=== PATIENT | male | born 1940 | race Hispanic/Latino ===

== ENCOUNTER 2020-07-04 09:16 | Outpatient (CLI) | payer OTHER ==
[2020-07-04 09:41] LABS: #Basophils 0.1 thou/uL (0.0-0.2); #Eosinphils 0.3 thou/uL (0.0-0.7); #Lymphocytes 1.6 thou/uL (1.20-3.40); #Monocytes 0.5 thou/uL (0.11-0.59); #Neutrophils 3.8 thou/uL (1.40-6.50); %Eosinophils 5.5 % (0.0-10.0); %Lymphocytes 24.8 % (21.0-51.0); %Monocytes 8.4 % (0.0-10.0); %Neutrophils 59.3 % (42.0-75.0); Hemoglobin 11.8 g/dL (14.0-18.0); Mean Corpuscular Hemoglobin 27.7 pg (27.0-31.0); Mean Corpuscular Volume 86.6 fL (78.0-98.0); Mean Platelet Volume 6.3 fL (7.4-10.4); Platelet Count 316 thou/uL (130-400); RBC Distribution Width 12.2 % (11.5-14.5); Red Blood Cell (RBC) Count 4.27 mill/uL (4.70-6.10); White Blood Cell (WBC) Count 6.3 thou/uL (4.8-10.8)
[2020-07-04 09:59] LABS: ALT (SGPT) 12 U/L (8-55); AST (SGOT) 17 U/L (5-34); Albumin 4.2 g/dL (3.4-4.8); Alkaline Phosphatase 86 U/L (40-110); Anion Gap 12 mmol/L (10-20); BUN (Urea Nitrogen) 18 mg/dL (8.4-25.7); Bilirubin, Total 0.3 mg/dL (0.2-1.2); Calc. Creatinine Clearance 0 mL/min (70-130); Calcium 9.3 mg/dL (7.8-10.44); Carbon Dioxide 29 mmol/L (23-31); Cardiac Risk 2.8 (Less than 4.5); Chloride 99 mmol/L (98-107); Cholesterol 212 mg/dl (< 200 Desired); Globulin 3.1 g/dL (2.4-3.5); Glucose 162 mg/dL (83-110); HDL Cholesterol 77 mg/dL (>60 Neg Risk); LDL Cholesterol, Calculated 122 mg/dL; Potassium 3.9 mmol/L (3.5-5.1); Protein, Total 7.3 g/dL (5.8-8.1); Sodium 136 mmol/L (136-145); Triglycerides 64 mg/dL (Less than 150)
[2020-07-04 10:15] LABS: Thyroid Stimulating Hormone 2.6899 uIU/mL (0.35-4.94)
[2020-07-04 15:04] LABS: Hemoglobin A1c 6.7 % (4.0-6.0)
[2020-07-04 15:22] LABS: Creatinine, Urine 254.87 mg/dL (63-166)
[2020-07-04 15:25] LABS: Microalbumin Urine 53.8 mg/dL (0.5-50.0); Microalbumin/Creat Ratio 211.1 mg/g (Less than 30)
== END 2020-07-04 09:17 | disposition home or self-care (01) ==
LOC: MADLAB 09:16
PROVIDERS: ATTEND Family Medicine
DX: E78.2 Mixed hyperlipidemia (principal); E11.9 Type 2 diabetes mellitus without complications; I10 Essential (primary) hypertension; Z79.899 Other long term (current) drug therapy
CPT/HCPCS: 36415; 80053; 80061; 82043; 83036; 84439; 84443; 85025

== ENCOUNTER 2023-10-25 19:15 | Inpatient (IN) | payer MEDICARE, OTHER ==
[2023-10-25 19:29] VITALS: BMI 26.3
[2023-10-25] MEDS ORDERED: Albuterol 200 PUFF (6.7GM INHALER) INH PRN (20:34)
[2023-10-25] MEDS ORDERED: Acetaminophen 325 MG TAB PO PRN (20:34)
[2023-10-25] MEDS: Mometasone/Formoterol 60 PUFF AER INH SCH (21:28)
[2023-10-25] MEDS: Losartan 25 MG TAB PO SCH (21:29)
[2023-10-25] MEDS: hydrALAZINE 25 MG TAB PO SCH (21:30)
[2023-10-25] MEDS: Amlodipine 5 MG TAB PO SCH (21:31)
[2023-10-25] MEDS: Atorvastatin Calcium 40 MG TAB PO SCH (21:31)
[2023-10-26] MEDS: Cholecalciferol 1,000 UNITS (25 MCG) TAB PO SCH (08:16)
[2023-10-26] MEDS: Clopidogrel Bisulfate 75 MG TAB PO SCH (08:16)
[2023-10-26] MEDS: Aspirin Chewable 81 MG TAB PO SCH (08:16)
[2023-10-26] MEDS: Ascorbic Acid 500 mg Chewable Tablet PO SCH (08:16)
[2023-10-26] MEDS: metFORMIN 500 MG TAB PO SCH (08:16)
[2023-10-26] MEDS ORDERED: Non-Formulary Item 1 EACH (Fluticasone/Vilanterol [Breo Ellipta] 100 MCG/25 MCG Blst.W.De IH SCH (09:00)
[2023-10-26] MEDS: QUEtiapine 25 MG TAB PO SCH (21:00)
[2023-10-26] MEDS: Losartan 50 MG TAB PO SCH (21:15)
[2023-10-27 05:53] LABS: ALT (SGPT) 19 U/L (8-55); AST (SGOT) 22 U/L (5-34); Albumin 3.4 g/dL (3.4-4.8); Alkaline Phosphatase 71 U/L (40-110); Anion Gap 14 mmol/L (10-20); BUN (Urea Nitrogen) 24 mg/dL (8.4-25.7); Bilirubin, Total 0.4 mg/dL (0.2-1.2); Calc. Creatinine Clearance 70 mL/min (70-130); Calcium 8.9 mg/dL (7.8-10.44); Carbon Dioxide 23 mmol/L (23-31); Chloride 101 mmol/L (98-107); Estimated GFR 85; Globulin 2.6 g/dL (2.4-3.5); Glucose 101 mg/dL (83-110); Potassium 4.2 mmol/L (3.5-5.1); Sodium 134 mmol/L (136-145)
[2023-10-27] MEDS: Acetaminophen 325 MG TAB PO PRN (08:00)
[2023-10-30 07:08] LABS: Hematocrit 36.4 % (42.0-52.0); Hemoglobin 11.4 g/dL (14.0-18.0); Mean Corpuscular HGB CONC 31.3 g/dL (32.0-36.0); Mean Corpuscular Volume 92.7 fl (78.0-98.0); Mean Platelet Volume 6.2 fL (7.4-10.4); Platelet Count 334 10x3/uL (130-400); RBC Distribution Width 12.8 % (11.5-14.5); Red Blood Cell (RBC) Count 3.93 mill/uL (4.70-6.10); White Blood Cell (WBC) Count 5.3 10x3/uL (4.8-10.8)
[2023-10-30 07:18] LABS: ALT (SGPT) 17 U/L (8-55); AST (SGOT) 20 U/L (5-34); Albumin 3.8 g/dL (3.4-4.8); Alkaline Phosphatase 83 U/L (40-110); Anion Gap 14 mmol/L (10-20); BUN (Urea Nitrogen) 18 mg/dL (8.4-25.7); Bilirubin, Total 0.4 mg/dL (0.2-1.2); Calc. Creatinine Clearance 69 mL/min (70-130); Calcium 9.2 mg/dL (7.8-10.44); Carbon Dioxide 23 mmol/L (23-31); Chloride 99 mmol/L (98-107); Estimated GFR 83; Globulin 2.8 g/dL (2.4-3.5); Glucose 100 mg/dL (83-110); Potassium 4.1 mmol/L (3.5-5.1); Protein, Total 6.6 g/dL (5.8-8.1); Sodium 132 mmol/L (136-145)
[2023-10-31] MEDS: Melatonin 3 MG TAB PO PRN (21:48)
[2023-11-02] MEDS: hydrALAZINE 25 MG TAB PO SCH ×2 (09:59→20:54)
[2023-11-02 10:32] LABS: Anion Gap 14 mmol/L (10-20); BUN (Urea Nitrogen) 24 mg/dL (8.4-25.7); Calc. Creatinine Clearance 62 mL/min (70-130); Calcium 9.3 mg/dL (7.8-10.44); Carbon Dioxide 24 mmol/L (23-31); Chloride 100 mmol/L (98-107); Estimated GFR 73; Glucose 174 mg/dL (83-110); Potassium 4.2 mmol/L (3.5-5.1); Sodium 134 mmol/L (136-145)
[2023-11-03] MEDS ORDERED: Bisacodyl 10 MG SUPP PR PRN (11:41)
[2023-11-03] MEDS: Bisacodyl 5 MG TAB PO PRN (17:05)
[2023-11-06] MEDS: hydrALAZINE 25 MG TAB PO SCH (20:44)
[2023-11-07] MEDS: hydrALAZINE 25 MG TAB PO SCH (09:55)
[2023-11-08 08:41] LABS: Anion Gap 15 mmol/L (10-20); BUN (Urea Nitrogen) 26 mg/dL (8.4-25.7); Calc. Creatinine Clearance 73 mL/min (70-130); Calcium 9.4 mg/dL (7.8-10.44); Carbon Dioxide 23 mmol/L (23-31); Chloride 100 mmol/L (98-107); Estimated GFR 84; Glucose 105 mg/dL (83-110); Potassium 4.4 mmol/L (3.5-5.1); Sodium 134 mmol/L (136-145)
[2023-11-08] MEDS: Senokot S 8.6-50 MG TAB PO PRN (21:22)
[2023-11-09] MEDS: Acetaminophen 500 MG TAB PO SCH (08:18)
[2023-11-09] MEDS: Diclofenac 1% 100 GM Topical GEL TP SCH (08:18)
[2023-11-09 20:37] VITALS: BMI 27.5
[2023-11-10] MEDS: hydrALAZINE 25 MG TAB PO SCH (08:07)
[2023-11-10] MEDS: Amlodipine 5 MG TAB PO SCH (08:07)
[2023-11-13 07:23] LABS: Anion Gap 13 mmol/L (10-20); BUN (Urea Nitrogen) 25 mg/dL (8.4-25.7); Calc. Creatinine Clearance 73 mL/min (70-130); Calcium 9.2 mg/dL (7.8-10.44); Carbon Dioxide 23 mmol/L (23-31); Chloride 103 mmol/L (98-107); Estimated GFR 85; Glucose 102 mg/dL (83-110); Potassium 4.4 mmol/L (3.5-5.1); Sodium 135 mmol/L (136-145)
[2023-11-13 19:41] VITALS: TEMP 97.2
[2023-11-14 08:13] VITALS: BP 153/71
== END 2023-11-14 17:56 | disposition home or self-care (01) | DRG 948 ==
LOC: MADMS 19:15
PROVIDERS: ADMIT Family Medicine; ATTEND Emergency Medicine
DX: R53.1 Weakness (principal); I69.354 Hemiplegia and hemiparesis following cerebral infarction affecting left non-dominant side; E87.0 Hyperosmolality and hypernatremia; R53.81 Other malaise; E11.9 Type 2 diabetes mellitus without complications; I10 Essential (primary) hypertension; G47.33 Obstructive sleep apnea (adult) (pediatric); E78.5 Hyperlipidemia, unspecified; R13.10 Dysphagia, unspecified; R74.01 Elevation of levels of liver transaminase levels; M10.9 Gout, unspecified; Z99.89 Dependence on other enabling machines and devices; Z79.899 Other long term (current) drug therapy; Z79.51 Long term (current) use of inhaled steroids; Z79.82 Long term (current) use of aspirin; Z79.02 Long term (current) use of antithrombotics/antiplatelets; Z79.84 Long term (current) use of oral hypoglycemic drugs
CPT/HCPCS: 36416; 80048; 80053; 85027; 94664; 36415-59